=== PATIENT | female | born 1975 | race Caucasian/White ===

== ENCOUNTER 2018-01-16 22:20 | Emergency (ER) | payer OTHER, SELFPAY ==
[2018-01-16 22:31] VITALS: BP 155/99; PULSE 90; RESP 18; TEMP 36.6; O2SAT 98; BMI 26.4
[2018-01-16 23:05] VITALS: BP 155/99; PULSE 90; RESP 18; TEMP 36.6; O2SAT 98; BMI 26.4
[2018-01-16] MEDS: OFLOXACIN 0.3% OPHTH PREPACK 1 BOTTLE MISC (23:43)
[2018-01-16 23:55] VITALS: BP 147/92; PULSE 79; RESP 14; TEMP 36.6; O2SAT 98
--- NOTE | 2018-01-17 03:16 | ED_ITS ---
HPI - Ear Problem General Chief complaint: Ear Stated complaint: CONGESTION, FEVER, PAIN Time Seen by Provider: 01/16/18 23:32 Source: patient Mode of arrival: ambulatory Limitations: no limitations History of Present Illness HPI Narrative: Patient is a 42-year-old female who presents with head and nasal congestion. She has had pressure for about a week. No fever. Yesterday she felt some drainage out of her right ear it is tender to touch on the outside. She denies any foreign body in that ear. Today she said she had extreme sudden onset of pain in the left ear with bleeding. She has significant a pressure in her sinuses. No chest pain or shortness but no neck pain. MD Complaint: ear pain and ear discharge Location: bilateral Related Data Previous Rx's Medication Instructions Recorded amoxicillin-pot clavulanate 1 tab PO Q12H #14 tab 01/16/18 [Augmentin] Review of Systems Review of Systems All systems reviewed & are unremarkable except as noted in HPI and below Constitutional Denies chills, Denies fever(s), Reports headache(s), Denies lethargy and Denies weakness ENT Ears, Nose, Mouth, and Throat: Reports system reviewed and no additional complaints, except as docu, Denies dizziness and Reports headache(s) Cardiovascular Denies chest pain, Denies syncope, Denies irregular heart rhythm, Denies lightheadedness, Denies palpitations, Denies dyspnea, Denies dyspnea on exertion and Denies orthopnea Respiratory Denies cough, Denies dyspnea, Denies dyspnea on exertion and Denies wheezing Integumentary/Breasts Denies pruritus, Denies erythema, Denies rash and Denies wounds Neurologic Denies dizziness, Denies syncope, Reports headache(s) and Denies weakness Endocrine Denies palpitations Allergic/Immunologic Denies wheezing [facility] Medical History Patient denies medical problems (Acute) Social History Smoking Status: Never smoker Exam Initial Vital Signs Initial Vital Signs: Vital Signs Temperature 98 F 01/16/18 22:31 Pulse Rate 90 01/16/18 22:31 Respiratory Rate 18 01/16/18 22:31 Blood Pressure 155/99 H 01/16/18 22:31 Pulse Oximetry 98 01/16/18 22:31 Const General: cooperative and well developed Nutritional Appearance: well nourished Orientation: alert, awake, oriented x3 and not confused [facility] Ears: EAC abnormal otic discharge purulent on the right and TM abnormal perforated (Left perforated blood draining and ear. There does appear to be some soap in there as well.) with bloody discharge on the left Face and sinus: sinus tenderness frontal, ethmoid and maxillary Throat: tonsils normal Neck Neck: full ROM and no meningeal signs Resp Effort & Inspection: normal respiratory effort, able to speak in complete sentences, no respiratory distress and no use of accessory muscles Auscultation: clear to auscultation bilaterally, no rales, no rhonchi and no wheezes Cardio Rate: regular rate Rhythm: regular rhythm Heart Sounds: no click, no gallops, no murmurs and no rubs Pulses: normal peripheral pulses Skin General: no rashes or lesions noted, No jaundice and No petechiae Neuro General: alert, awake and oriented x3 Course Orders Ordered: Discontinued Medications Ciprofloxacin/Dexamethasone (Ciprodex Otic Susp) 4 drops EAR-RIGHT NOW ONE Stop: 01/16/18 23:09 Last Admin: 01/16/18 23:43 Dose: Ofloxacin (Ocuflox) 1 bottle MISC SEEINSTR ONE Stop: 01/16/18 23:33 Last Admin: 01/16/18 23:43 Dose: 10 drop Vital Signs - 8 hr 01/16/18 22:31 01/16/18 23:05 01/16/18 23:55 Temperature 98 F 98 F 97.9 F Pulse Rate 90 90 79 Respiratory Rate 18 18 14 Blood Pressure 155/99 H 155/99 H 147/92 H Pulse Oximetry 98 98 98 Discharge Plan Departure Patient Disposition: Home, Self-Care Clinical Impression: Otitis externa, Rupture of left tympanic membrane, Sinusitis Discharge Date/Time: 01/16/18 23:48 Interventions: ED Discharge Assessment Last Done: 01/16/18 23:55 Instructions: DI for Tympanic Membrane Perforation-Adult, DI for Otitis Externa Activity Restrictions/Additional Instructions: *You have been diagnosed with infection of right ear, ruptured tympanic membrane left ear and sinusitis *What to do: NOTHING IN LEFT EAR, TRY TO KEEP WATER OUT Continue with on a nasal decongestants as previously directed and Neti pot *Continue to take medications as directed -right ear: 10 dropped twice a day for 10 days -Augmentin all 875 twice a day for 7 days *Follow up with your primary care provider in 2-3 days *Return to ER if you should have fever, increasing pain, or any new, worsening or concerning symptoms Prescriptions: New amoxicillin-pot clavulanate [Augmentin] 875-125 mg tablet 1 tab PO Q12H Qty: 14 RF: 0
== END 2018-01-16 23:48 | disposition home or self-care (01) ==
PROVIDERS: Emergency Provider Emergency Medicine
DX: H60.92 Unspecified otitis externa, left ear (principal); H72.92 Unspecified perforation of tympanic membrane, left ear; J32.9 Chronic sinusitis, unspecified
CPT/HCPCS: 99282; 99283